=== PATIENT | female | born 1965 | race Two or more races ===

== ENCOUNTER 2017-10-21 14:33 | Outpatient (CLI) | payer OTHER ==
[~2017-10-21 14:33] MED LIST: NABUMETONE500 MG PO; PERCOCET 5/3251 TAB PO
== END 2017-10-21 15:09 | disposition home or self-care (01) ==
LOC: SONOGRAMA 14:33
DX: M25.512 Pain in left shoulder (principal); M25.522 Pain in left elbow

== ENCOUNTER 2021-08-10 09:00 | Outpatient (CLI) | payer OTHER | END 2021-08-10 09:15 | disposition home or self-care (01) | LOC: PPH VACUNA 09:00 | PROVIDERS: ATTEND Emergency Medicine Pediatric Emergency Medicine | DX: Z23 Encounter for immunization (principal) ==

== ENCOUNTER 2022-12-27 10:30 | Outpatient (CLI) | payer OTHER | END 2022-12-27 14:34 | disposition home or self-care (01) | LOC: LAB 10:30 | PROVIDERS: ATTEND Internal Medicine Hematology & Oncology | DX: D50.8 Other iron deficiency anemias (principal); R79.9 Abnormal finding of blood chemistry, unspecified; I10 Essential (primary) hypertension; R74.02 Elevation of levels of lactic acid dehydrogenase [LDH]; K76.89 Other specified diseases of liver; D51.8 Other vitamin B12 deficiency anemias; D51.1 Vitamin B12 deficiency anemia due to selective vitamin B12 malabsorption with proteinuria; D51.0 Vitamin B12 deficiency anemia due to intrinsic factor deficiency; E03.8 Other specified hypothyroidism; E06.3 Autoimmune thyroiditis; R59.0 Localized enlarged lymph nodes; D51.3 Other dietary vitamin B12 deficiency anemia; E11.9 Type 2 diabetes mellitus without complications; E78.2 Mixed hyperlipidemia ==

== ENCOUNTER → 2023-05-09 | Emergency (ER) | payer OTHER ==
[~2023-05-09] VITALS: Ht 162.6 cm; Wt 62.1 kg
[~2023-05-09] MED LIST changes: +CRESTOR10 MG; +GLUMETZA500 MG; +ZESTRIL20 MG
== END | disposition left against medical advice (07) ==
LOC: ER 23:34
DX: Z53.21 Procedure and treatment not carried out due to patient leaving prior to being seen by health care provider (principal)

== ENCOUNTER 2024-08-16 08:28 | Outpatient (CLI) | payer OTHER ==
[~2024-08-16 08:28] MED LIST changes: +ANALPRAM HC 2.530 GM RECTAL
== END 2024-08-16 08:42 | disposition home or self-care (01) ==
LOC: SONOGRAMA 08:28
PROVIDERS: ATTEND Pathology Anatomic Pathology & Clinical Pathology
DX: D34 Benign neoplasm of thyroid gland (principal); E07.89 Other specified disorders of thyroid; E03.8 Other specified hypothyroidism

== ENCOUNTER 2024-12-01 09:17 | Emergency (ER) | payer OTHER ==
[~2024-12-01] VITALS: Ht 162.6 cm; Wt 63.5 kg
[2024-12-01] MEDS ORDERED: KETOROLAC TROMETHAMINE 30 MG VIAL IV ONE (09:30)
[2024-12-01] MEDS ORDERED: FAMOTIDINE/PF 20 MG/2 ML VIAL IV PUSH ONE (09:30)
[2024-12-01] MEDS ORDERED: HYOSCYAMINE SULFATE 0.125 MG TAB.SUBL SL ONE (09:30)
[2024-12-01] MEDS ORDERED: TAMSULOSIN HCL 0.4 MG CAP PO ONE ×2 (09:30→09:35)
[2024-12-01] MEDS ORDERED: ONDANSETRON HCL 2 MG/ML VIAL IV ONE (09:30)
[2024-12-01] MEDS ORDERED: KETOROLAC TROMETHAMINE 30 MG VIAL ONE (09:35)
[2024-12-01] MEDS ORDERED: ONDANSETRON HCL 2 MG/ML VIAL ONE (09:35)
[2024-12-01] MEDS ORDERED: FAMOTIDINE/PF 20 MG/2 ML VIAL ONE (09:36)
[2024-12-01] MEDS ORDERED: HYOSCYAMINE SULFATE 0.125 MG TAB.SUBL ONE (09:36)
[2024-12-01] MEDS ORDERED: 0.9 % SODIUM CHLORIDE 1,000 ML IV ONE (09:45)
[2024-12-01 09:58] LABS: HEMATOCRIT 41.4 % (36.0-45.00); HEMOGLOBIN 13.9 g/dL (12.0-15.00); MEAN CELL VOLUME 86.1 fL (80.00-100.00); MEAN CORPUSCULAR HEMOGLOBIN 28.9 pg (27.00-32.0); MEAN CORPUSCULAR HGB CONC 33.5 g/dl (32.0-36.0); PLATELET COUNT 263 K/uL (150-450); RED BLOOD COUNT 4.81 M/uL (4.00-6.00); RED CELL DISTRIBUTION WIDTH 13.8 % (11.5-14.5)
[2024-12-01 10:21] LABS: ALBUMIN 4.1 gm/dL (3.4-5.0); BILIRUBIN TOTAL 0.59 mg/dL (0.3-1.2); CALCIUM 9.4 mg/dL (8.5-10.1); CREATININE SERUM 0.7 mg/dL (0.55-1.02); GFR 85.65; GLOBULINA 3.8 G/DL (2.4-3.5); POTASSIUM 3.67 mEq/L (3.5-5.1); TOTAL PROTEIN 7.9 gm/dL (6.4-8.2)
[2024-12-01 10:54] LABS: URINE APPEARANCE Clear; URINE BILIRRUBIN Negative (NEGATIVE); URINE BLOOD Large; URINE COLOR Yellow; URINE GLUCOSE Negative (NEGATIVE); URINE KETONE Negative (NEGATIVE); URINE LEUKOCYTE Negative; URINE NITRATE Negative; URINE PROTEIN 30 (NEGATIVE); URINE UROBILINOGEN 0.2 E.U./dl
[2024-12-01 10:58] LABS: URINE EPITHELIAL CELLS 9.4 uL (0.0-38.8); URINE RBC 632.6 uL (0.0-20.8); URINE WBC 19.9 uL (0.0-23.2)
[2024-12-01 11:28] LABS: URINE CAST 0.29 uL (0.0-1.40)
[2024-12-01 11:29] LABS: URINE CRYSTALS MANY /HPF
[2024-12-01] MEDS ORDERED: MORPHINE SULFATE 4 MG/ML VIAL IV ONE (11:45)
== END 2024-12-01 11:54 | disposition home or self-care (01) ==
LOC: ER 09:19
PROVIDERS: General Practice
DX: N13.2 Hydronephrosis with renal and ureteral calculous obstruction (principal); N28.1 Cyst of kidney, acquired; I10 Essential (primary) hypertension; E11.9 Type 2 diabetes mellitus without complications; Z79.84 Long term (current) use of oral hypoglycemic drugs
CPT/HCPCS: 36415; 74176; 96365; 99283; J1885; J2405; J3490

== ENCOUNTER 2025-08-04 06:38 | Emergency (ER) | payer OTHER ==
[~2025-08-04] VITALS: Ht 162.6 cm; Wt 63.0 kg
[2025-08-04 07:59] VITALS: BP 135/83; O2SAT 97
[2025-08-04] MEDS ORDERED: BENZONATATE 100 MG CAPSULE PO ONE (09:45)
[2025-08-04 11:17] LABS: COVID-19 AG NEGATIVE (NEGATIVE)
[2025-08-04 11:56] LABS: BASO % 0.3 % (0.1-1.2); EOS # 0.03 (0.04-0.54); EOS % 0.4 % (0.7-7.0); LYMPH # 1.73 (1.18-3.74); LYMPH % 25.3 % (19.3-53.1); MEAN PLATELET VOLUME 12.50 fl (9.4-12.4); MONO # 1.55 (0.24-0.82); NEUT # 3.46 (1.56-6.13); NEUT % 50.5 % (34.0-71.1); RED CELL DISTRIBUTION WIDTH 13.1 % (11.6-14.4)
[2025-08-04 11:57] LABS: MONO % 22.6 % (4.7-12.5)
[2025-08-04] MEDS ORDERED: ACETAMINOPHEN500 M1 PO (13:15)
[2025-08-04] MEDS ORDERED: GILTUSS COUGH-118 M1 PO (13:15)
[2025-08-04 13:49] LABS: BAND MAN 14.0 %; LYMPHOCYTE MAN 26.0 %; MONOCYTE MAN 19.0 %; NEUTROPHILS MAN 37.0 %
== END 2025-08-04 14:00 | disposition home or self-care (01) ==
LOC: ER 06:38
PROVIDERS: Preventive Medicine Public Health & General Preventive Medicine
DX: B34.8 Other viral infections of unspecified site (principal); Z20.822 Contact with and (suspected) exposure to COVID-19; E11.9 Type 2 diabetes mellitus without complications; Z79.84 Long term (current) use of oral hypoglycemic drugs; I10 Essential (primary) hypertension